=== PATIENT | male | born 1985 | race Hispanic/Latino ===

== ENCOUNTER 2017-02-14 09:43 | Emergency (ER) | payer OTHER ==
[2017-02-14 09:47] VITALS: BMI 28.5
[2017-02-14 09:49] VITALS: O2SAT 98
--- NOTE | 2017-02-14 11:46 | ED PDOC ---
HPI: Abdomen Time Seen by Provider: 02/14/17 10:08 Chief Complaint (Nursing): GI Problem History Per: Patient History/Exam Limitations: no limitations Onset/Duration Of Symptoms: Waxing/Waning, Persistent Outside of [place] travel?: No Current Symptoms Are (Timing): Still Present Context: Food Associated Symptoms: denies: Fever, Chills, Nausea, Vomiting Exacerbating Factors: denies: None Alleviating Factors: denies: None Past Medical History Reviewed: Historical Data, Nursing Documentation, Vital Signs Vital Signs: Last Vital Signs Temp 98.4 F 02/14/17 09:56 Pulse 57 L 02/14/17 09:56 Resp 18 02/14/17 09:56 BP 131/80 02/14/17 09:56 Pulse Ox 98 02/14/17 11:48 - Medical History PMH: No Chronic Diseases - Surgical History Surgical History: No Surg Hx - Family History Family History: States: No Known Family Hx - Living Arrangements Living Arrangements: With Family - Allergies Allergies/Adverse Reactions: Allergies Allergy/AdvReac Type Severity Reaction Status Date / Time No Known Allergies Allergy Verified 02/14/17 09:55 Review of Systems ROS Statement: Except As Marked, All Systems Reviewed And Found Negative Constitutional: Negative for: Fever, Chills Respiratory: Negative for: Cough Gastrointestinal: Positive for: Other (1.5 x 2.0 cm hemorrhi. ). Negative for: Nausea Skin: Negative for: Rash Physical Exam - Reviewed Nursing Documentation Reviewed: Yes Vital Signs Reviewed: Yes - Physical Exam Appears: Positive for: Well, Non-toxic, No Acute Distress Head Exam: Positive for: ATRAUMATIC, NORMAL INSPECTION, NORMOCEPHALIC Skin: Positive for: Normal Color, Warm, DRY Eye Exam: Positive for: Normal appearance, EOMI ENT: Positive for: Normal ENT Inspection Neck: Positive for: Normal Cardiovascular/Chest: Positive for: Regular Rate, Rhythm Respiratory: Positive for: Normal Breath Sounds Gastrointestinal/Abdominal: Positive for: Normal Exam, Bowel Sounds, Soft, Other (large hemorrhoid with tenderness o) Back: Positive for: Normal Inspection Extremity: Positive for: Normal ROM Neurologic/Psych: Positive for: Alert, Oriented - ECG O2 Sat by Pulse Oximetry: 98 Medical Decision Making Medical Decision Making: patient seen by surgery. Incision thrombectomy performed. patient to be discharged. Disposition - Clinical Impression Clinical Impression: Hemorrhoid - Patient ED Disposition Is Patient to be Admitted: No Doctor Will See Patient In The: Office Counseled Patient/Family Regarding: Diagnosis, Need For Followup - Disposition Referrals: Zackary Hyde MD [Staff Provider] - Disposition: Routine/Home Disposition Time: 11:48 Condition: IMPROVED Instructions: Hemorrhoids (ED), Sitz Bath (GEN) Forms: [facility] (Thai) - POA Present On Arrival: None
[2017-02-14] MEDS ORDERED: Naproxen 500 MG TAB PO ONE ×2 (12:50→13:11)
[2017-02-14] MEDS ORDERED: Epinephrine /Lidocaine HCL 1:100,000/2% 30 ml INJ ONE (13:09)
[2017-02-14] MEDS ORDERED: Lidocaine 2% w Epi 1:100,000 Inj IJ ONE (13:16)
[2017-02-14] MEDS ORDERED: Povidone Iodine Oint 10% Foilpak UD ONE (13:18)
[2017-02-14 14:20] VITALS: BP 128/78; PULSE 78; RESP 19; TEMP 97.6
== END 2017-02-14 14:20 | disposition home or self-care (01) ==
LOC: H.ER 09:43
DX: K64.9 Unspecified hemorrhoids (principal)